=== PATIENT | male | born 1985 | race Caucasian/White ===

== ENCOUNTER 2025-01-21 15:22 | Inpatient (IN) | payer OTHER ==
[2025-01-21] MEDS: KETOROLAC 15 MG/ML 1 ML VIAL IVP STA (16:05)
[2025-01-21] MEDS: SODIUM CHLORIDE 0.9% 1,000 ML IV ONE (16:06)
[2025-01-21 16:07] LABS: Basophils # (A) 0.03 10*3/uL (0.00-0.10); Basophils % (A) 0.5 %; Eosinophils # (A) 0.07 10*3/uL (0.04-0.35); Eosinophils % (A) 1.2 %; HCT 41.1 % (39.6-50.0); HGB 14.6 g/dL (13.0-17.0); Lymphocytes # (A) 1.88 10*3/uL (0.90-5.00); Lymphocytes % (A) 33.4 %; MCH 30.1 pg (27.0-32.0); MCHC 35.5 g/dL (32.0-37.0); MCV 84.7 fL (80.0-97.0); Monocytes # (A) 0.51 10*3/uL (0.20-1.00); Monocytes % (A) 9.1 %; Neutrophils # (A) 3.13 10*3/uL (1.80-7.70); Neutrophils % (A) 55.6 %; Platelet Count 244 10*3/uL (140-440); RBC 4.85 10*6/uL (4.40-5.60); RDW 11.7 % (11.5-14.5); WBC 5.63 10*3/uL (4.50-10.00)
[2025-01-21] MEDS: ONDANSETRON 4 MG/2 ML VIAL IVP STA (16:08)
[2025-01-21 16:12] LABS: African American GFR (CKD) >90 (>60 ml/min/1.73 sqM); Anion Gap 14 mmol/L; Blood Urea Nitrogen 24 mg/dL (9-20); Calcium 10.1 mg/dL (8.4-10.2); Carbon Dioxide 22 mmol/L (22-30); Chloride 103 mmol/L (98-107); Glucose 106 mg/dL (74-99); Non-African American GFR(CKD) 89 (>60 ml/min/1.73 sqM); Potassium 4.0 mmol/L (3.5-5.1); Sodium 139 mmol/L (137-145)
--- NOTE | 2025-01-21 17:05 | CT ---
EXAMINATION TYPE: CT abdomen pelvis wo con DATE OF EXAM: 01/21/2025 4:54 PM COMPARISON: None. CLINICAL INDICATION: Male, 39 years old with history of R flank pain; right flank pain, h/o kidney st ones TECHNIQUE: Axial CT abdomen pelvis wo con;Sagittal and coronal reformats were created on a separate workstation. Oral contrast used: without Oral Contrast (none if empty) CT DLP: 1337.7 mGycm, Automated exposure control for dose reduction was used. FINDINGS: LOWER CHEST: Unremarkable ABDOMEN LIVER: Unremarkable GALLBLADDER AND BILE DUCTS: Layering increased densities within the lumen consistent with gallstones are present. PANCREAS: Unremarkable. SPLEEN: Unremarkable. ADRENAL GLANDS: Unremarkable. KIDNEYS AND URETERS: 9 mm calculus in the right renal pelvis causing mild/moderate upstream hydroneph rosis. There is mild asymmetric right perinephric fat stranding/acute inflammatory changes. No eviden ce of left-sided hydronephrosis. Additional punctate nonobstructing right renal calculi. No definite left-sided nephrolithiasis or ureterolithiasis. PELVIS BLADDER: No evidence for wall thickening or mass given limitations of exam. REPRODUCTIVE: Unremarkable. ABDOMEN & PELVIS STOMACH AND BOWEL: Stomach and duodenum are unremarkable. No evidence of bowel obstruction. PERITONEUM/RETROPERITONEUM: No evidence of pneumoperitoneum or free fluid. VASCULATURE: No evidence of aortic aneurysm. MUSCULOSKELETAL: No acute osseous abnormalities LYMPH NODES: No gross evidence for lymphadenopathy. SOFT TISSUE/ABDOMINAL WALL: Unremarkable IMPRESSION: 1. 9 mm calculus in the right renal pelvis causing mild to moderate hydronephrosis and associated in flammatory changes as described above. 2. Additional nonobstructing small right renal calculi. 3. Cholelithiasis. [facility], , 01/21/2025 5:03 PM
[2025-01-21 17:38] LABS: Amorphous Sediment,Urine Occasional /hpf; Bilirubin,Urine Negative (Negative); Blood,Urine Negative (Negative); Color,Urine Yellow; Glucose,Urine (UA) Negative (Negative); Ketones,Urine 1+ (Negative); Leukocyte Esterase,Urine Negative (Negative); Mucus,Urine Rare /hpf; Nitrite,Urine Negative (Negative); PH, Urine 8.0 (5.0-8.0); Protein,Urine Trace (Negative); RBC,Urine 3 /hpf (0-5); Specific Gravity,Urine 1.027 (1.001-1.035); Urobilinogen,Urine 2.0 mg/dL (<2.0); WBC,Urine 1 /hpf (0-5)
[2025-01-21] MEDS: MORPHINE SULFATE 4 MG/ML SYRINGE IVP STA (17:43)
[2025-01-21] MEDS ORDERED: NALOXONE 0.4 MG/ML 1 ML VIAL IV PRN (17:58)
--- NOTE | 2025-01-21 18:00 | ED ---
Male Urogenital HPI - General Chief complaint: Urogenital Stated complaint: kidney stone Time Seen by Provider: 01/21/25 15:30 Source: patient Mode of arrival: ambulatory Limitations: no limitations - History of Present Illness Initial comments: 39-year-old male presenting with chief complaint of right flank pain. He has been having some dull back pain for few days. He did have some instances of hematuria as well. Today he had sudden intensifying of the pain which prompted him to come here. Admits to nausea and vomiting. No dysuria urgency or freq uency. No fever or chills. Pain wraps around to the abdomen - Related Data Allergies Allergy/AdvReac Type Severity Reaction Status Date / Time No Known Allergies Allergy Verified 01/21/25 15:25 Review of Systems ROS Statement: Those systems with pertinent positive or pertinent negative responses have been documented in the HPI. ROS Other: All systems not noted in ROS Statement are negative. Past Medical History Past Medical History: Atrial Fibrillation Additional Past Medical History / Comment(s): renal stones Past Surgical History: Orthopedic Surgery Smoking Status: Never smoker Past Alcohol Use History: Occasional Past Drug Use History: None Reported General Exam Limitations: no limitations General appearance: alert, in no apparent distress Head exam: Present: atraumatic, normocephalic, normal inspection Eye exam: Present: normal appearance, EOMI Neck exam: Present: normal inspection. Absent: meningismus Respiratory exam: Absent: respiratory distress Cardiovascular Exam: Present: regular rate GI/Abdominal exam: Present: soft, tenderness. Absent: distended, guarding, r ebound, rigid Neurological exam: Present: alert, oriented X3 Psychiatric exam: Present: normal affect, normal mood Skin exam: Present: warm, dry, normal color Course Vital Signs 01/21/25 01/21/25 15:26 17:31 Temperature 98.1 F Pulse Rate 64 72 Respiratory 24 16 Rate Blood Pressure 145/88 143/94 O2 Sat by Pulse 100 99 Oximetry Medical Decision Making - Medical Decision Making Was pt. sent in by a medical professional or institution (, [facility], OUTDOOR EMERGENCY CARE TECHNICIAN, urgent care, hospital, or half-way...) When possible be specific @ -No Did you speak to anyone other than the patient for history (EMS, parent, family, police, friend...)? What history was obtained from this source @ -No Did you review nursing and triage notes (agree or disagree)? Why? @ -I reviewed and agree with nursing and triage notes Were old charts reviewed (outside hosp., previous admission, EMS record, old EKG, old radiological studies, urgent care reports/EKG's, half-way records)? Report findings @ -No old charts were reviewed Differential Diagnosis (chest pain, altered mental status, abdominal pain women, abdominal pain men, vaginal bleeding, weakness, fever, dyspnea, syncope, headache, dizziness, GI bleed, back pain, seizure, CVA, palpatations, mental health, musculoskeletal)? @ -MDM Differential Abdominal Pain Men: Appendicitis, cholecystitis, diverticulosis, ischemic bowel, pancreatitis, hepatitis, UTI, gastroenteritis, AAA, incarcerated hernia, bowel obstruction, constipation, inflammatory bowel, hepatitis, peptic ulcer disease, splenic infarction, perforated viscus, testicular torsion... This is not meant to be an all-inclusive list EKG interpreted by me (3pts min.). @ -As above X-rays interpreted by me (1pt min.). @ -None done CT interpreted by me (1pt min.). @ -CT shows 9 mm calculus in the right renal pelvis causing mild to moderate hydronephrosis and associated inflammatory changes. Additional nonobstructing small right renal calculi. Cholelithiasis U/S interpreted by me (1pt. min.). @ -None done What testing was considered but not performed or refused? (CT, X-rays, U/S, labs)? Why? @ -None What meds were considered but not given or refused? Why? @ -None Did you discuss the management of the patient with other professionals (professionals i.e. , PA, OUTDOOR EMERGENCY CARE TECHNICIAN, lab, RT, psych nurse, psychotherapist social worker, carding machine feeder, teacher, supply officer, pillowcase folder)? Give summary @ -Spoke with Dr. Zeng who accepts admission Was smoking cessation discussed for >3mins.? @ -No Was critical care preformed (if so, how long)? @ -No Were there social determinants of health that impacted care today? How? (Homelessness, low income, unemployed, alcoholism, drug addiction, transportation, low edu. Level, literacy, decrease access to med. care, long-term, rehab)? @ -No Was there de-escalation of care discussed even if they declined (Discuss DNR or withdrawal of care, Hospice)? DNR status @ -No What co-morbidities impacted this encounter? (DM, HTN, Smoking, COPD, CAD, Cancer, CVA, ARF, Chemo, Hep., AIDS, mental health diagnosis, sleep apnea, morbid obesity)? @ -None Was patient admitted / discharged? Hospital course, mention meds given and route, prescriptions, significant lab abnormalities, going to OR and other pertinent info. @ -39-year-old male presenting with chief complaint of right flank pain. History and physical examination are conducted. Urine shows no evidence of infectious process or bleeding. CT shows 9 mm stone in the right renal pelvis. After pain medication patient reports continued pain and nausea and vomiting. He will be admitted for observation. He is agreeable with this plan. I discussed this case with my attending Dr. Bright Undiagnosed new problem with uncertain prognosis? @ -No Drug Therapy requiring intensive monitoring for toxicity (Heparin, Nitro, Insu adelfo, Cardizem)? @ -No Were any procedures done? @ -No Diagnosis/symptom? @ -Kidney stone Acute, or Chronic, or Acute on Chronic? @ -Acute Uncomplicated (without systemic symptoms) or Complicated (systemic symptoms)? @ -complicated Side effects of treatment? @ -No Exacerbation, Progression, or Severe Exacerbation? @ -No Poses a threat to life or bodily function? How? (Chest pain, USA, SC, pneumonia, PE, COPD, DKA, ARF, appy, cholecystitis, CVA, Diverticulitis, Homicidal, Suicidal, threat to staff... and all critical care pts) @ -Unlikely - Lab Data Result diagrams: 01/21/25 16:03 01/21/25 16:03 Lab Results 01/21/25 01/21/25 01/21/25 Range/Units 16:03 16:03 17:26 WBC 5.63 (4.50-10.00) 10*3/uL RBC 4.85 (4.40-5.60) 10*6/uL Hgb 14.6 (13.0-17.0) g/dL Hct 41.1 (39.6-50.0) % MCV 84.7 (80.0-97.0) fL MCH 30.1 (27.0-32.0) pg MCHC 35.5 (32.0-37.0) g/dL Plt Count 244 (140-440) 10*3/uL MPV 10.1 (9.5-12.2) fL Immature Gran % (Auto) 0.2 % Neutrophils % 55.6 % Lymphocytes % 33.4 % Monocytes % 9.1 % Eosinophils % 1.2 % Basophils % 0.5 % Immature Gran # 0.01 (0.00-0.04) 10*3/uL Neutrophils # 3.13 (1.80-7.70) 10*3/uL Lymphocytes # 1.88 (0.90-5.00) 10*3/uL Monocytes # 0.51 (0.20-1.00) 10*3/uL Eosinophils # 0.07 (0.04-0.35) 10*3/uL Basophils # 0.03 (0.00-0.10) 10*3/uL Sodium 139 (137-145) mmol/L Potassium 4.0 (3.5-5.1) mmol/L Chloride 103 (98-107) mmol/L Carbon Dioxide 22 (22-30) mmol/L Anion Gap 14 mmol/L BUN 24 H (9-20) mg/dL Creatinine 1.06 (0.66-1.25) mg/dL Est GFR (CKD-EPI)AfAm >90 (>60 ml/min/1.73 sqM) Est GFR (CKD-EPI)NonAf 89 (>60 ml/min/1.73 sqM) Glucose 106 H (74-99) mg/dL Calcium 10.1 (8.4-10.2) mg/dL Urine Color Yellow Urine Appearance Cloudy (Clear) Urine pH 8.0 (5.0-8.0) Ur Specific [place] 1.027 (1.001-1.035) Urine Protein Trace H (Negative) Urine Glucose (UA) Negative (Negative) Urine Ketones 1+ H (Negative) Urine Blood Negative (Negative) Urine Nitrite Negative (Negative) Urine Bilirubin Negative (Negative) Urine Urobilinogen 2.0 (<2.0) mg/dL Ur Leukocyte Esterase Negative (Negative) Urine RBC 3 (0-5) /hpf Urine WBC 1 (0-5) /hpf Amorphous Sediment Occasional H (None) /hpf Urine Mucus Rare H (None) /hpf Disposition Clinical Impression: Kidney stone Disposition: ADMITTED IP TO THIS [facility] Condition: Fair Is patient prescribed a controlled substance at d/c from ED?: No Time of Disposition: 18:00
[2025-01-21] MEDS: SODIUM CHLORIDE 0.9% 1,000 ML IV SCH (18:09)
[2025-01-21] MEDS: METOCLOPRAMIDE 5 MG/ML 2 ML VIAL IVP PRN (18:57)
[2025-01-22] MEDS: KETOROLAC 15 MG/ML 1 ML VIAL IVP PRN (06:21)
--- NOTE | 2025-01-22 13:10 | P.GSHP ---
History of Present Illness H&P Date: 01/22/25 Chief Complaint: Renal stone This is a 39-year-old male presents to the hospital with intractable pain associated with gross hematuria. Indicates also he has been experiencing nausea and vomiting. Denies any fevers or chills. In the ER he underwent a CT abdomen and pelvis that showed evidence of a 9 mm right-sided renal pelvic stone with mild hydronephrosis. This morning on evaluation he continues to have pain. He indicated he does have a previous history of kidney stones which he passed spontaneously. No known family history of kidney stones. He is hemodynamically stable. - Constitutional Constitutional: Denies chills, Denies fever - Cardiovascular Cardiovascular: Denies chest pain, Denies shortness of breath - Respiratory Respiratory: Denies cough, Denies 7 - Integumentary Integumentary: Denies pruritus, Denies rash - Neurological Neurological: Denies numbness, Denies weakness - Psychiatric Psychiatric: Denies anxiety, Denies depression Past Medical History Past Medical History: Atrial Fibrillation Additional Past Medical History / Comment(s): renal stones History of Any Multi-Drug Resistant Organisms: None Reported Past Surgical History: Orthopedic Surgery Past Anesthesia/Blood Transfusion Reactions: No Reported Reaction Additional Past Anesthesia/Blood Transfusion Reaction / Comment(s): no hx of blood transfusions Past Psychological History: No Psychological Hx Reported Smoking Status: Never smoker Past Alcohol Use History: Occasional Past Drug Use History: None Reported Medications and Allergies Home Medications Medication Instructions Recorded Confirmed Type Aspirin EC [Ecotrin Low Dose] 81 mg PO DAILY 01/21/25 01/21/25 History Metoprolol Succinate (ER) [Toprol 25 mg PO DAILY 01/21/25 01/21/25 History XL] Tirzepatide [Mounjaro] 7.5 mg SQ FR 01/21/25 01/21/25 History metFORMIN HCL ER [Glucophage XR] 500 mg PO DAILY 01/21/25 01/21/25 History Allergies Allergy/AdvReac Type Severity Reaction Status Date / Time No Known Allergies Allergy Verified 01/21/25 19:03 Surgical - Exam Vital Signs Temp Pulse Resp BP Pulse Ox 98.1 F 64 24 145/88 100 01/21/25 15:26 01/21/25 15:26 01/21/25 15:26 01/21/25 15:26 01/21/25 15:26 - General no distress, moderate pain - Eyes normal ocular movement, no pale - ENT normal nares, normal mucosa - Respiratory normal expansion, normal respiratory effort - Abdomen Abdomen: soft, tender (right flank) - Psychiatric oriented to time, oriented to person, oriented to place Results - Labs 01/21/25 16:03 01/21/25 16:03 Abnormal Lab Results - Last 24 Hours (Table) 01/21/25 01/21/25 Range/Units 16:03 17:26 BUN 24 H (9-20) mg/dL Glucose 106 H (74-99) mg/dL Urine Protein Trace H (Negative) Urine Ketones 1+ H (Negative) Amorphous Sediment Occasional H (None) /hpf Urine Mucus Rare H (None) /hpf Diabetes panel 01/21/25 Range/Units 16:03 Sodium 139 (137-145) mmol/L Potassium 4.0 (3.5-5.1) mmol/L Chloride 103 (98-107) mmol/L Carbon Dioxide 22 (22-30) mmol/L BUN 24 H (9-20) mg/dL Creatinine 1.06 (0.66-1.25) mg/dL Glucose 106 H (74-99) mg/dL Calcium 10.1 (8.4-10.2) mg/dL Calcium panel 01/21/25 Range/Units 16:03 Calcium 10.1 (8.4-10.2) mg/dL Pituitary panel 01/21/25 Range/Units 16:03 Sodium 139 (137-145) mmol/L Potassium 4.0 (3.5-5.1) mmol/L Chloride 103 (98-107) mmol/L Carbon Dioxide 22 (22-30) mmol/L BUN 24 H (9-20) mg/dL Creatinine 1.06 (0.66-1.25) mg/dL Glucose 106 H (74-99) mg/dL Calcium 10.1 (8.4-10.2) mg/dL Adrenal panel 01/21/25 Range/Units 16:03 Sodium 139 (137-145) mmol/L Potassium 4.0 (3.5-5.1) mmol/L Chloride 103 (98-107) mmol/L Carbon Dioxide 22 (22-30) mmol/L BUN 24 H (9-20) mg/dL Creatinine 1.06 (0.66-1.25) mg/dL Glucose 106 H (74-99) mg/dL Calcium 10.1 (8.4-10.2) mg/dL Assessment and Plan Assessment: 39-year-old male with symptomatic 9 millimeter right-sided renal pelvic stone. Discussed with him option of right-sided ureteroscopy with laser, he is aware of the risk which include but not limited to bleeding, infection, injury to the ureter N.p.o. past midnight OR for right-sided ureteroscopy, laser lithotripsy, stone basketing and stent insertion
[2025-01-23 07:55] VITALS: TEMP 97.8
[2025-01-23] MEDS: LACTATED RINGERS 1,000 ML IV SCH (10:44)
--- NOTE | 2025-01-23 11:49 | P.PN ---
Subjective Progress Note Date: 01/23/25 Continues to have right flank pain, denies any gross hematuria or dysuria Objective - Vital Signs Vital signs: Vital Signs Temp 97.8 F 01/23/25 07:55 Pulse 62 01/23/25 07:55 Resp 18 01/23/25 07:55 BP 141/88 01/23/25 07:55 Pulse Ox 96 01/23/25 07:55 FiO2 Intake & Output 01/22/25 01/23/25 01/23/25 18:59 06:59 18:59 Other: Voiding Method Toilet Toilet Toilet # Voids 3 2 - Constitutional General appearance: Present: no acute distress - Gastrointestinal General gastrointestinal: Present: soft. Absent: distended, tenderness - Psychiatric Psychiatric: Present: A&O x's 3 - Labs CBC & Chem 7: 01/21/25 16:03 01/21/25 16:03 Assessment and Plan Assessment: 39-year-old male with symptomatic 9 millimeter right-sided renal pelvic stone. Discussed with him option of right-sided ureteroscopy with laser, he is aware of the risk which include but not limited to bleeding, infection, injury to the ureter OR for right-sided ureteroscopy, laser lithotripsy, stone basketing and stent insertion
[2025-01-23] MEDS: ONDANSETRON 4 MG/2 ML VIAL IVP PRN (13:07)
[2025-01-23] MEDS: IV FLUID CONTINUATION 1,000 ML IV ONE (13:11)
[2025-01-23] MEDS: MIDAZOLAM 2 MG/2 ML VIAL IV ONE (13:18)
[2025-01-23] MEDS ORDERED: PROPOFOL 10 MG/ML 20 ML VIAL IV ONE (14:27)
[2025-01-23] MEDS ORDERED: SUCCINYLCHOLINE CHLORIDE 200 MG/10 ML VIAL IV ONE (14:27)
[2025-01-23] MEDS ORDERED: LIDOCAINE 1% INJ 10MG/ML (20 ML MDV) ONE (14:27)
[2025-01-23] MEDS ORDERED: MIDAZOLAM 2 MG/2 ML VIAL ONE (14:27)
[2025-01-23] MEDS ORDERED: PHENYLEPHRINE-0.9% NACL SYG 1,000 MCG/10 ML SYRINGE ONE (14:27)
[2025-01-23] MEDS ORDERED: fentaNYL (PF) 50 MCG/ML 2 ML AMP ONE (14:27)
[2025-01-23] MEDS: SODIUM CHLORIDE 0.9% 100 ML with ceFAZolin 3,000 MG IV ONE (14:32)
[2025-01-23 15:30] VITALS: RESP 16
--- NOTE | 2025-01-23 15:36 | P.OP ---
Date of Procedure: 01/23/25 Preoperative Diagnosis: Right renal stone Postoperative Diagnosis: Same Procedure(s) Performed: Cystoscopy, right ureteroscopy, laser lithotripsy, stone basketing and stent insertion Implants: 6 [place] by 28 cm stent in the right ureter, left on a string and taped to patient's penis Anesthesia: SHERRIE Surgeon: Ricardo Zeng Estimated Blood Loss (ml): 5 Pathology: other (Renal stone) Condition: stable Disposition: PACU Indications for Procedure: 39-year-old male with symptomatic 9 millimeter right-sided renal pelvic stone. Discussed with him option of right-sided ureteroscopy with laser, he is aware of the risk which include but not limited to bleeding, infection, injury to the ureter Operative Findings: Right sided renal pelvic stone Description of Procedure: Patient brought to the operating, general anesthesia was induced. He was prepped and draped in sterile fashion placed in dorsolithotomy position. Cystoscopy fitted with 21 [place] sheath was inserted per urethra, cystoscopy was performed showed no abnormality within the bladder. Attention was then carried to the right ureteral orifice which was intubated with a sensor wire. The wire was advanced under fluoroscopy into the kidney. Next under fluoroscopy an 1113 [place] access sheath was passed over the wire and into the proximal ureter. The flexible ureteroscope was inserted through the access sheath, renoscopy was performed showed a large stone in the renal pelvis. Using the holmium laser the stone was dusted, sizable fragments were removed using the stone basket. Repeat renoscopy showed no sizable fragments or injury to the kidney, on fluoroscopy there was no radiopaque density seen. Pullback ureteroscopy was performed showed no injury to the ureter or any ureteral stones, as the ureteroscope was withdrawn a sensor wire was advanced through. Next a ureteral stent was passed over the wire, the proximal curl was visualized on fluoroscopy and the distal curl was visualized using the cystoscope. The stent was left on a string and taped to the patient penis. Patient tolerated the procedure well was taken to recovery in stable condition
--- NOTE | 2025-01-23 15:37 | P.DS ---
Providers Date of admission: 01/21/25 17:59 Attending physician: Ricardo Zeng MD Primary care physician: Stated None Hospital Course: 39-year-old male admitted to the hospital with intractable pain secondary to right sided renal pelvic stone. Patient was taken to the OR on January 23 for right-sided ureteroscopy and holmium laser, please see op note dated January 23 for surgery details. Patient was discharged home following surgery. At time of discharge he was ambulating, tolerating a diet, pain was controlled. He was advised to remove his stent in 3 days. Patient Condition at Discharge: Fair Plan - Discharge Summary Discharge Rx Participant: Yes New Discharge Prescriptions: New Cephalexin [Keflex] 500 mg PO Q6HR 1 Days #4 cap Ketorolac [Toradol] 10 mg PO Q6HR PRN #15 tab PRN Reason: Pain No Action Aspirin EC [Ecotrin Low Dose] 81 mg PO DAILY Metoprolol Succinate (ER) [Toprol XL] 25 mg PO DAILY metFORMIN HCL ER [Glucophage XR] 500 mg PO DAILY Tirzepatide [Mounjaro] 7.5 mg SQ FR Discharge Medication List Aspirin EC [Ecotrin Low Dose] 81 mg PO DAILY 01/21/25 [History] Metoprolol Succinate (ER) [Toprol XL] 25 mg PO DAILY 01/21/25 [History] Tirzepatide [Mounjaro] 7.5 mg SQ FR 01/21/25 [History] metFORMIN HCL ER [Glucophage XR] 500 mg PO DAILY 01/21/25 [History] Cephalexin [Keflex] 500 mg PO Q6HR 1 Days #4 cap 01/23/25 [Rx] Ketorolac [Toradol] 10 mg PO Q6HR PRN #15 tab 01/23/25 [Rx] Follow up Appointment(s)/Referral(s): Ricardo Zeng MD [STAFF PHYSICIAN] - As Needed None,Stated [Primary Care Provider] - 1-2 days Patient Instructions/Handouts: *Surgery [facility] - Cystoscopy Discharge Instructions, *Surgery [facility] - (Anesthesia) Discharge Instructions Outpatient Surgery, Kidney Stones (ED) Activity/Diet/Wound Care/Special Instructions: Your stent was left on a string and taped your penis, it can be removed on Wednesday, January 26 in the morning. To remove the stent pull on the string, and the stent will come out, the stent measures approximately 26 cm And it is attached to a black string. Discharge/Stand Alone Forms: Area PCPs
[2025-01-23 16:07] VITALS: BP 140/89; PULSE 68
--- NOTE | 2025-01-23 16:14 | FL ---
EXAMINATION TYPE: FL guidance operating room DATE OF EXAM: 01/23/2025 FLUOROSCOPY cysto with lithotripsy, 12sec fl time, FNU=692.26 No images are provided. [facility], , 01/23/2025 4:12 PM
[2025-01-23] MEDS: MORPHINE SULFATE 4 MG/ML SYRINGE IV PRN (16:39)
[2025-01-23] MEDS: KETOROLAC 15 MG/ML 1 ML VIAL IVP STA (17:22)
== END 2025-01-23 19:00 | disposition home or self-care (01) | DRG 661 ==
LOC: EC 15:22 → 6NMEDSUR 17:58 → OBSVTOIN 17:59 → 4SSUR 18:03
PROVIDERS: ADMIT Urology; ATTEND Urology
PROC: 0TC38ZZ Extirpation of Matter from Right Kidney Pelvis, Via Natural or Artificial Opening Endoscopic (ICD-10-PCS; principal; 2025-01-23 14:15)
PROC: 0T768DZ Dilation of Right Ureter with Intraluminal Device, Via Natural or Artificial Opening Endoscopic (ICD-10-PCS; 2025-01-23 14:15)
DX: N13.2 Hydronephrosis with renal and ureteral calculous obstruction (principal); Z79.82 Long term (current) use of aspirin; Z79.84 Long term (current) use of oral hypoglycemic drugs; Z79.85 Long-term (current) use of injectable non-insulin antidiabetic drugs; Z87.442 Personal history of urinary calculi
CPT/HCPCS: 36415; 74176; 80048; 81001; 82365; 85025; 96361; 96374; 96375; 99285